=== PATIENT | female | born 1980 | race African-American/Black ===

== ENCOUNTER 2024-11-23 05:59 | Observation (INO) ==
[2024-11-23] MEDS ORDERED: KETOROLAC 30 MG/ML INJ VIAL ONE (06:22)
[2024-11-23] MEDS ORDERED: ONDANSETRON HCL/PF 4 MG/2 ML VIAL ONE ×2 (06:22→07:45)
[2024-11-23] MEDS: ONDANSETRON HCL/PF 4 MG/2 ML VIAL IVP ONE ×2 (06:38→07:50)
[2024-11-23] MEDS: KETOROLAC 30 MG/ML INJ VIAL IVP ONE (06:38)
[2024-11-23 06:48] LABS: Basophils #(Absolute) Auto 0.1 (0.0-0.1); Basophils%(Percent) Auto 0.8 (0.1-0.85); Eosinophils#(Absolute)Auto 0.1 (0.0-0.2); Eosinophils%(Percent) Auto 0.4 % (0.4-2.8); Granulocytes % - Auto 69.6 % (47.8-71.3); Granulocytes#(Absolute)- Auto 9.2 (2.3-6.0); Hematocrit 44.7 % (35.9-46.7); Mean Corpuscular Volume 89.7 fl (81.0-93.7); Monocytes #(Absolute)- Auto 1.2 (1.1-3.1); Monocytes %(Percent)- Auto 9.2 % (3.6-9.8); Platelet Count 302 K/uL (152-353); White Blood Count 13.2 K/uL (4.3-9.3)
[2024-11-23 06:53] LABS: PH BODY FLUID EXCP BLOOD 6.5 (5 - 9); Specific Gravity Urine 1.025 (1.001-1.035); Urine Appearance HAZY (CLEAR); Urine Blood 3+ (NEG - TRACE); Urine Color YELLOW (STRAW/YELL.); Urine Urobilinogen Normal (NORMAL)
[2024-11-23 07:02] LABS: Urine Amorphous Sediment Negative (Negative); Urine Yeast Negative (Negative)
--- NOTE | 2024-11-23 07:35 | Emergency Department Note ---
HPI - Abdominal Pain General Chief Complaint: Abdominal Pain Stated Complaint: ABDOMINAL PAIN Time Seen by Provider: 11/23/24 08:26 Source: patient Mode of arrival: walk-in Limitations: no limitations History of Present Illness HPI narrative: 44-year-old female approximately 1 week history of progressively generalized abdominal pain with intermittent nausea and vomiting. Patient states her symptoms of gotten progressively worse with time. Patient has been seen in 2 separate ERs this week and reports diagnosis of constipation and kidney stones. [facility] with complaints of worsening symptoms. She denies known sick contacts. She is pending a primary care follow-up appointment this Saturday with Dr. Zeny SWAIN elicited complaint: abdominal pain Pertinent past history: constipation and kidney stones Pain Consistency: constant Location: diffuse Severity: moderate-severe Quality: dull Relieving factors: nothing Associated symptoms: nausea, vomiting and anorexia Treatments prior to arrival: NSAIDs Related Data Home Medications Medication Instructions Recorded Confirmed albuterol sulfate 90 mcg/actuation 2 puff inhalation Q4H PRN 11/27/24 11/27/24 aerosol inhaler shortness of breath or wheezing ondansetron 4 mg disintegrating 4 mg PO Q6H PRN nausea and vomiting 11/27/24 11/27/24 tablet promethazine 25 mg rectal 25 mg [place] Q6H PRN nausea and 11/27/24 11/27/24 suppository vomiting sucralfate 1 gram tablet (Carafate) 1 g PO TIDCC 11/27/24 11/27/24 Previous Rx's Medication Instructions Recorded docusate sodium 100 mg capsule 100 mg PO DAILY #30 caps 11/24/24 (Colace) famotidine 40 mg tablet (Pepcid) 40 mg PO BID gastritis #60 tabs 11/28/24 pantoprazole 40 mg tablet,delayed 40 mg PO BID gerd #60 tabs 11/28/24 release polyethylene glycol 3350 17 17 g PO BID constipation #850 grams 11/28/24 gram/dose oral powder (Miralax) simethicone 180 mg capsule 180 mg PO Q8H gas #60 caps 11/28/24 Allergies Allergy/AdvReac Type Severity Reaction Status Date / Time No Known Drug Allergies Allergy Verified 11/26/24 12:59 Review of Systems Status of ROS 10 or more systems reviewed and unremark able except as noted in history and below PFSH PFS Medical History Schizophrenia Hypertension Surgical History Hx of section Social History Smoking status: never smoker Within the past year, how often did you have a drink containing alcohol: never Within the past year, how often did you have six or more drinks on one occasion: never Score interpretation: A score less than 3 is consistent with normal alcohol consumption. Non-prescribed substance use: denies use Problems where you live: no known problems Highest level of school completed/degree received: high school Feel stressed/tense/nervous/anxious/difficulty sleeping: not at all Life stressor details: n/a Gender Identity: female Exam Constitutional: normal general appearance and no apparent distress Vital Signs - 24 hr 11/23/24 06:02 11/23/24 06:02 11/23/24 07:00 Temperature 98.5 F Pulse Rate 99 H 80 Respiratory Rate 20 18 Blood Pressure 174/90 173/82 Pulse Oximetry 98 98 99 Oxygen Delivery Me thod Room Air Room Air Room Air 11/23/24 08:00 11/23/24 09:00 Temperature Pulse Rate 78 71 Respiratory Rate 18 18 Blood Pressure 160/97 147/74 Pulse Oximetry 99 97 Oxygen Delivery Me thod Room Air Room Air HENMT: normocephalic and head/scalp atraumatic dry mucus membranes Eyes: PERRL and conjunctivae normal Neck/C-Spine: visual inspection normal, trachea midline, cervical spine nontender, cervical full ROM noted and supple Lymph: no lymphadenopathy noted Chest: inspection of chest normal Respiratory: breath sounds equal bilaterally, normal respiratory effort, clear to auscultation bilaterally, no wheezes and no rales Cardiovascular: normal heart rate noted and regular rhythm noted Gastrointestinal: nondistended, no masses, no pulsatile mass, no ascites and no hernia Moderate mid abdominal tenderness, no rebound, no guarding Genitourinary: no CVA tenderness and bladder normal to palpation Back/Pelvis: spine normal to inspection, no thoracic spine tenderness, no lumbar spine tenderness and thoracic spine ROM normal Extremities: normal to inspection, normal to palpation, no tenderness and full ROM Neurology: screw remover II-XII intact, no movement abnormality noted, no focal motor deficit noted, speech normal and GCS normal Skin: skin color normal, no rash and no lesions Course Course Hospital Course: IVF 1L NS BOLUS Toradol 30mg IV Zofran 4mg IV Vital Signs Vital signs: Vital Signs Temperature 98.5 F 11/23/24 06:02 Pulse Rate 99 H 11/23/24 06:02 Respiratory Rate 20 11/23/24 06:02 Blood Pressure 174/90 11/23/24 06:02 Pulse Oximetry 98 11/23/24 06:02 Oxygen Delivery Method Room Air 11/23/24 06:02 Temperature 98.1 F 11/24/24 07:57 Pulse Rate 102 H 11/24/24 07:57 Respiratory Rate 17 11/24/24 07:57 Blood Pressure 118/66 11/24/24 07:57 Pulse Oximetry 99 11/24/24 07:57 Oxygen Delivery Method Room Air 11/24/24 07:57 MDM - Abdominal Pain MDM Narrative Medical decision making narrative: Medical Decision Making based upon physical exam, CBC, CMP, Amylase, lipase, urinalysis, CT of the abdomen pelvis without contrast, gallbladder ultrasound, and response to medications. Differential Diagnosis Differential diagnosis: Likely abdominal pain, acute appendicitis, calculus of kidney, constipation, diverticulitis, gastroenteritis, pancreatitis and small noemí wel obstruction Medical Records Attestation: I reviewed the patient's medical records. Lab Data Attestation: I reviewed the patient's lab results. Labs: Lab Results 11/23/24 11/23/24 11/23/24 Range/Units 06:10 06:18 06:38 WBC 13.2 H (4.3-9.3) K/uL RBC 5.0 (4.00-5.50) M/uL Hgb 14.8 (12.5-15.8) gm/dL Hct 44.7 (35.9-46.7) % MCV 89.7 (81.0-93.7) fl MCH 29.7 (27.6-32.2) pg MCHC 33.1 (33.1-35.3) g/dl RDW 15.8 H (11.4-14.2) % Plt Count 302 (152-353) K/uL MPV 9.1 (6.9-10.8) fl Gran % 69.6 (47.8-71.3) % Lymph % (Auto) 20.0 (20.0-43.0) % [place] % (Auto) 9.2 (3.6-9.8) % Eos % (Auto) 0.4 (0.4-2.8) % Baso % (Auto) 0.8 (0.1-0.85) Lymph # (Auto) 2.6 (1.1-3.1) [place] # (Auto) 1.2 (1.1-3.1) Eos # (Auto) 0.1 (0.0-0.2) Baso # (Auto) 0.1 (0.0-0.1) Absolute Gran (auto) 9.2 H (2.3-6.0) Sodium 130 L (136-145) mmol/L Potassium 3.0 L (3.6-5.2) mmol/L Chloride 92.0 L (98-107) mmol/L Carbon Dioxide 31 (21-32) mmol/L Anion Gap 7.0 (4-14) mEq/L BUN 9 (7-18) mg/dL Creatinine 0.9 (0.6-1.3) mg/dL Estimated GFR 80.8 (>59.9) Glucose 120 H (70-110) mg/dL Calcium 9.3 (8.5-10.1) mg/dL Total Bilirubin 0.37 (0.0-1.0) mg/dL AST 21 (15-37) U/L ALT 36 (30-65) U/L Alkaline Phosphatase 82 (50-136) U/L Total Protein 8.3 H (6.4-8.2) g/dL Albumin 4.0 (3.4-5.0) g/dL Triglycerides 79 (35-180) mg/dL Cholesterol 169 (110-200) mg/dL LDL Cholesterol 90.0 (0-99) mg/dl VLDL Cholesterol, Calc 16 (0-30) mg/dL HDL Cholesterol 58 (29-71) mg/dL LDL/HDL Ratio 1.6 Cholesterol/HDL Ratio 2 Lipase 224.0 H (16.0-77.0) U/L Urine Color Yellow (STRAW/YELL.) Urine Appearance Hazy (CLEAR) Ur Specific [place] 1.025 (1.001-1.035) Urine Protein Negative (NEGATIVE) Urine Glucose (UA) Normal (NORMAL) Urine Ketones Negative (NEGATIVE) Urine Occult Blood 3+ (NEG - TRACE) Urine Nitrite Negative (NEGATIVE) Urine Bilirubin Negative (NEGATIVE) Urine Urobilinogen Normal (NORMAL) Ur Leukocyte Esterase Negative (NEGATIVE) Urine RBC 5 - 10 (0 - 5) Urine WBC 0 - 2 ( 0 - 5) Ur Epithelial Cells Moderate (Few/HPF) Amorphous Sediment Negative (Negative) Urine Bacteria Negative (Negative) Urine Mucus Negative (Negative) Urine Trichomonas Negative (Negative) Urine Yeast Negative (Negative) Urine Test Negative (Negative) Fluid pH 6.5 (5 - 9) Imaging Data Imaging ordered: CT scan - abdomen Attestation: I personally reviewed and interpreted this imaging study as follows: Radiologist's impression: EXAMINATION: CT ABDOMEN PELVIS WO CON HISTORY: abd painabd pain; COMPARISON: None. TECHNIQUE: Contiguous noncontrast axial CT images of the abdomen and pelvis. Images reviewed in the axial imaging plane with reformatted sagittal and coronal images.The above CT scan was done with automated exposure control and the mA and kV was adjusted to obtain quality images according to patient size. FINDINGS: Details of the organs are limited since intravenous and oral contrast were not used. The liver measures 18 by 18 by 16 cm. No focal liver lesions seen. Gallbladder mildly distended. The gallbladder contains dense material measuring 45 Hounsfield units nonspecific for biliary sludge, possible soft tissue mass. No bile duct dilatation. Pancreas, spleen, adrenal glands appear intact. The abdominal aorta tapers normally. Kidneys normal size and position. No hydronephrosis. Details of the GI tract are limited since oral contrast was not used. Mild amount of bowel-gas and feces throughout the colon. No evidence of appendicitis. Equivocal mild bowel wall thickening portions of the descending colon and sigmoid colon. The stomach contains a small amount of food. No ascites. Urinary bladder mildly distended. Uterus measures 11 by 7 x 8 cm. Nonspecific [id number] thickening of the endometrium. Osseous structures appear intact. Pulmonary bases are clear. IMPRESSION: The gallbladder contains dense material possible biliary sludge, soft tissue mass. Recommend follow-up ultrasound of the biliary tract. Thickening of the endometrium of the uterus. Recommend follow-up transabdominal and transvaginal ultrasound of the pelvis. Equivocal mild bowel wall thickening portions of the descending colon, and sigmoid colon THIS IS AN ELECTRONICALLY VERIFIED FINAL REPORT 11/23/2024 7:45 AM - Electronically signed by Maki Mendez MD EXAM: US GALLBLADDER HISTORY: Abodminal PainAbodminal Pain; ABNML CT REPORT COMPARISON: CT same day TECHNIQUE: Multiple peterson scale and color flow Doppler images of the right upper quadrant were obtained. FINDINGS: The liver is normal in size and normal in echotexture. No focal identifiable hepatic mass or intrahepatic biliary ductal dilatation. No stones or sludge in the gallbladder. No gallbladder wall thickening or pericholecystic fluid. The sonographic López's sign is reported as negative by the insights strategist. The common bile duct is unremarkable measuring 0.5 cm. Limited visualized portions of the pancreas and IVC are unremarkable. The right kidney appears normal in size measuring up to 10.6 cm. No stones or hydronephrosis. IMPRESSION: Unremarkable right upper quadrant ultrasound. No evidence of cholelithiasis or acute cholecystitis. THIS IS AN ELECTRONICALLY VERIFIED FINAL REPORT 11/23/2024 8:28 AM - Electronically signed by Elmer Adams MD Discharge Plan Discharge Patient Disposition: Admitted As Observation Condition: Stable Clinical Impression: Gastroenteritis, Abdominal pain, Constipation, Leukocytosis, Hyponatremia, Hypokalemia Interventions: ED Discharge Assessment Last Done: 11/23/24 10:53 ED Discharge Vital Sign Last Done: 11/23/24 10:53 Emergency Department Charge Sheet Last Done: 11/23/24 10:53 Time of Disposition: 09:30 Discharge Date/Time: 11/23/24 10:54
[2024-11-23] MEDS ORDERED: PANTOPRAZOLE SODIUM 40 MG VIAL ONE (07:44)
[2024-11-23] MEDS ORDERED: MORPHINE SULFATE 4 MG/ML CARTRIDGE ONE (07:45)
[2024-11-23] MEDS: PANTOPRAZOLE SODIUM 40 MG VIAL IVP ONE (07:50)
[2024-11-23] MEDS: MORPHINE SULFATE 4 MG/ML CARTRIDGE IVP ONE (07:50)
[2024-11-23] MEDS ORDERED: MAGNESIUM, ALUMINUM HYDROXIDE 30 ML ORAL.SUSP PO PRN (11:00)
[2024-11-23] MEDS ORDERED: DOCUSATE SODIUM 100 MG CAPSULE PO PRN (11:00)
[2024-11-23] MEDS: polyethylene glycoL 3350 17 GM POWD.PACK PO STA (11:00)
[2024-11-23] MEDS ORDERED: ONDANSETRON HCL/PF 4 MG/2 ML VIAL INJ PRN (11:00)
[2024-11-23] MEDS: 0.9 % SODIUM CHLORIDE 1000 ML 1,000 ML IV SCH (11:01)
[2024-11-23] MEDS: POTASSIUM CL 20 MEQ/100 ML SOL 20 MEQ/100 ML PIGGYBACK IV ONE (12:27)
--- NOTE | 2024-11-23 12:46 | History & Physical Report ---
H&P: HPI History of Present Illness Chief complaint: ABD PAIN, LEUKOCYTOSIS, HYPOKALEMIA, HYPONATREMIA Narrative: Ms. Don was admitted o 11/23/24 from the ED after experiencing generalized abdominal pain for 1 week. No BM x 7 days. She has had some vomiting of white emesis states "every 20 minutes" but labs do not reflect this much emesis. Denies any medical history or medications. She has not taken any laxatives prior to arrival. WBC 13.2, Na 130, K 3.0. She received KCL, Miralax, and NS in the ED. Review of Systems Status of ROS 10 or more systems reviewed and unremark able except as noted in history and below Constitutional Reports: fatigue and change in sleep pattern; Denies: fever, chills, change in weight or malaise Eyes Denies: change in vision, blurry vision, blind spots, light sensitivity or eye discomfort Ears, nose, mouth, and throat Reports: hoarseness; Denies: throat pain, neck pain, throat swelling, difficulty swallowing, mouth pain, swelling of lips/tongue, dry mouth, change in hearing, vertigo, nasal discharge or post nasal drip Cardiovascular Reports: chest pain; Denies: palpitations, edema, swelling of feet/ankles, lightheadedness, shortness of breath with exertion or shortness of breath when lying down Respiratory Denies: shortness of breath, cough, wheezing, stridor, pain on inspiration, change in phlegm color or coughing up blood Gastrointestinal Reports: abdominal pain, constipation and change in bowel habi ts Genitourinary Denies: painful urination, urinary frequency, urinary urgency, urinary incontinence or blood in urine Musculoskeletal Denies: back pain, neck pain, extremity pain, extremity swelling, joint pain or limited range of motion Integumentary/Breast Denies: rash, itching, redness, skin pain, skin tenderness or skin swelling Neurological Denies: headache, numbness in extremities, weakness in extremities, lack of coordination or dizziness Psychiatric Denies: anxiety, mood swings, panic attacks, change in sleep pattern or hopelessness Endocrine Denies: excessive urination, excessive thirst, fatigue, cold intoler ance or excessive sweating Hematologic/Lymphatic Denies: easy bruising, easy bleeding or enlarged lymph nodes Allergic/Immunologic Denies: hives, throat swelling, tongue swelling, facial swelling or wheezing PFSH [facility] Medical History (Updated 12/17/24 @ 09:24 by Karen Moura DO) Hypokalemia Schizophrenia Hypertension Surgical History Hx of section Social History Smoking status: never smoker Within the past year, how often did you have a drink containing alcohol: never Within the past year, how often did you have six or more drinks on one occasion: never Score interpretation: A score less than 3 is consistent with normal alcohol consumption. Non-prescribed substance use: denies use Problems where you live: no known problems Highest level of school completed/degree received: high school Feel stressed/tense/nervous/anxious/difficulty sleeping: not at all Life stressor details: n/a Gender Identity: female Meds Home Medications and Allergies Home Medications Medication Instructions Recorded Confirmed Type docusate sodium 100 mg capsule 100 mg PO DAILY #30 cap s 11/24/24 11/26/24 Rx (Colace) albuterol sulfate 90 mcg/actuation 2 puff inhalation Q 4H PRN 11/27/24 11/27/24 History aerosol inhaler shortness of breath or wheez ing ondansetron 4 mg disintegrating 4 mg PO Q6H PRN nausea and vomiting 11/27/24 11/27/24 History tablet promethazine 25 mg rectal 25 mg [place] Q6H PRN nausea and 11/27/24 11/27/24 History suppository vomiting sucralfate 1 gram tablet (Carafate) 1 g PO TIDCC 11/2711/27/24 History famotidine 40 mg tablet (Pepcid) 40 mg PO BID gastriti s #60 tabs 11/28/24 Rx pantoprazole 40 mg tablet,delayed 40 mg PO BID gerd #6 0 tabs 11/28/24 11/27/24 Rx release polyethylene glycol 3350 17 17 g PO BID constipation # 850 grams 11/28/24 Rx gram/dose oral powder (Miralax) simethicone 180 mg capsule 180 mg PO Q8H gas #60 caps 11/28/24 Rx Allergies Allergy/AdvReac Type Severity Reaction Status Date / Time No Known Drug Allergies Allergy Verified 11/26/24 12:59 Exam Exam: Patient setting up in bed with family at bedside in [facility]. talking and cutting up with them. Constitutional: abnormal general appearance (disheveled), (chronically ill) and (frail appearing), no apparent distress, average body habitus, no limitations and alert Vital Signs - 24 hr 11/23/24 06:02 11/23/24 06:02 11/23/24 07:00 Temperature 98.5 F Pulse Rate 99 H 80 Pulse Rate [Left] Respiratory Rate 20 18 Blood Pressure 174/90 173/82 Blood Pressure [Le ft Arm] Pulse Oximetry 98 98 99 Oxygen Delivery Me thod Room Air Room Air Room Air 11/23/24 08:00 11/23/24 09:00 11/23/24 10:00 Temperature Pulse Rate 78 71 72 Pulse Rate [Left] Respiratory Rate 18 18 18 Blood Pressure 160/97 147/74 143/78 Blood Pressure [Le ft Arm] Pulse Oximetry 99 97 96 Oxygen Delivery Ne thod Room Air Room Air Room Air 11/23/24 10:53 11/23/24 10:53 11/23/24 12:00 Temperature 97.7 F Pulse Rate 72 Pulse Rate [Left] 73 Respiratory Rate 16 16 Blood Pressure 143/78 Blood Pressure [Le ft Arm] 170/98 Pulse Oximetry 98 98 Oxygen Delivery Ne thod Room Air Room Air HENMT: normocephalic, head/scalp atraumatic, hearing grossly normal bilaterally, nasal mucous membranes normal, oral mucous membranes abnormal, dentition abnormal and gingiva normal Eyes: PERRL, EOMs intact bilaterally, conjunctivae normal, no scleral icterus and no papilledema Neck/C-Spine: visual inspection normal, trachea midline, cervical spine nontender, cervical full ROM noted, supple, no meningeal signs, thyroid normal and no carotid bruits Lymph: no lymphadenopathy noted and no lymphedema noted Chest: inspection of chest normal Respiratory: breath sounds equal bilaterally, normal respiratory effort, clear to auscultation bilaterally, no wheezes, no rales, no retractions, no use of accessory muscles and chest percussion normal Cardiovascular: heart rate abnormal (tachycardic), regular rhythm noted, no gallop and no rub Gastrointestinal: abdomen normal to inspection, abdomen soft to palpation, tender to palpation, nondistended, abnormal bowel sounds noted (hypoactive bowel sounds), hepatosplenomegaly noted, no masses, no pulsatile mass, no ascites and no hernia Generalized tenderness bilateral upper abdomen. Genitourinary: no CVA tenderness and bladder normal to palpation Back/Pelvis: spine normal to inspection and no thoracic spine tenderness Extremities: normal to inspection and normal to palpation Neurology: plan examiner II-XII intact, no movement abnormality noted, no focal motor deficit noted, sensory deficit noted, deep tendon reflexes 2+ bilaterally, gait normal, speech normal, coordination normal and no pronator drift noted Psychiatry: Mental Status Exam documented within this Exam's Psych section mental status grossly normal, oriented x3, thought process abnormality noted, cooperative, affect normal, psychomotor activity normal and memory normal Feel stressed/tense/nervous/anxious/difficulty sleeping: not at all Skin: skin color abnormal, no rash, no lesions, no ecchymosis noted, no wounds, no lacerations, skin turgor abnormal, no petechiae, no mottling and nails abnormality noted Assessment and Plan Assessment and Plan (1) Acute dehydration: Code(s): E86.0 - Dehydration (2) Abdominal pain: Qualifiers: Abdominal location: generalized Qualified Code(s): R10.84 - Generalized abdominal pain Code(s): R10.9 - Unspecified abdominal pain (3) Constipation: Qualifiers: Constipation type: slow transit constipation Qualified Code(s): K59.01 - Slow transit constipation Code(s): K59.00 - Constipation, unspecified (4) Sinus tachycardia: Code(s): R00.0 - Tachycardia, unspecified (5) GERD with esophagitis: Qualifiers: Esophagitis bleeding: without hemorrhage Qualified Code(s): K21.00 - Gastro-esophageal reflux disease with esophagitis, without bleeding Code(s): K21.00 - Gastro-esophageal reflux disease with esophagitis, without bleeding (6) Hypertension: Qualifiers: Hypertension type: primary hypertension Qualified Code(s): I10 - Essential (primary) hypertension Code(s): I10 - Essential (primary) hypertension (7) Schizophrenia: Qualifiers: Schizophrenia type: other Qualified Code(s): F20.89 - Other schizophrenia Code(s): F20.9 - Schizophrenia, unspecified (8) Anemia: Qualifiers: Anemia type: other cause Other causes of anemia: other cause, not classified Qualified Code(s): D64.89 - Other specified anemias Code(s): D64.9 - Anemia, unspecified (9) Hypokalemia: Code(s): E87.6 - Hypokalemia (10) Hypoalbuminemia: Code(s): E88.09 - Other disorders of plasma-protein metabolism, not elsewhere classified Plan Lactulose 20gm po q6hrs x4 Miralax 17gm po BID Toradol 30mg IV q6hrs prn cardiac specialist serial abdominal exams cautious hydration Results Labs Labs: CBC 11/23/24 Range/Units 06:38 WBC 13.2 H (4.3-9.3) K/uL RBC 5.0 (4.00-5.50) M/uL Hgb 14.8 (12.5-15.8) gm/dL Hct 44.7 (35.9-46.7) % Plt Count 302 (152-353) K/uL Gran % 69.6 (47.8-71.3) % Lymph % (Auto) 20.0 (20.0-43.0) % [place] % (Auto) 9.2 (3.6-9.8) % Eos % (Auto) 0.4 (0.4-2.8) % Baso % (Auto) 0.8 (0.1-0.85) Lymph # (Auto) 2.6 (1.1-3.1) [place] # (Auto) 1.2 (1.1-3.1) Eos # (Auto) 0.1 (0.0-0.2) Baso # (Auto) 0.1 (0.0-0.1) Absolute Gran (auto) 9.2 H (2.3-6.0) CMP 11/23/24 06:18 Sodium 130 L Potassium 3.0 L Chloride 92.0 L Carbon Dioxide 31 BUN 9 Creatinine 0.9 Glucose 120 H Calcium 9.3 Liver Function 11/23/24 Range/Units 06:18 Total Bilirubin 0.37 (0.0-1.0) mg/dL AST 21 (15-37) U/L ALT 36 (30-65) U/L Alkaline Phosphatase 82 (50-136) U/L Albumin 4.0 (3.4-5.0) g/dL Urine 11/23/24 06:10 Urine Color Yellow Urine Appearance Hazy Ur Specific [place] 1.025 Urine Protein Negative Urine Glucose (UA) Normal Pulse Oximetry Attestation: I have reviewed the pertinent pulse oximetry results. ECG Attestation: I have reviewed the pertinent ECG results. Prior ECG tracings: available for review Imaging Imaging ordered: CT scan - abdomen Radiologist's impression: The gallbladder contains dense material possible biliary sludge, soft tissue mass. Recommend follow-up ultrasound of the biliary tract. Thickening of the endometrium of the uterus. Recommend follow-up transabdominal and transvaginal ultrasound of the pelvis. Equivocal mild bowel wall thickening portions of the descending colon, and sigmoid colon Additional Findings Additional findings: Unremarkable right upper quadrant ultrasound. No evidence of cholelithiasis or acute cholecystitis. THIS IS AN ELECTRONICALLY VERIFIED FINAL REPORT 11/23/2024 8:28 AM - Electronically signed by Elmer Adams MD
[2024-11-23] MEDS: ACETAMINOPHEN PO PRN (13:39)
[2024-11-23] MEDS: OXYCODONE HCL PO PRN (13:39)
[2024-11-23] MEDS: LACTULOSE 20 GM/30 ML SOLUTION PO SCH (13:39)
[2024-11-23] MEDS: cloNIDine HCL 0.1 MG TABLET PO PRN (17:16)
[2024-11-23] MEDS: ACETAMINOPHEN 500 MG TABLET PO PRN (20:39)
[2024-11-23] MEDS: polyethylene glycoL 3350 17 GM POWD.PACK PO SCH (20:41)
[2024-11-23] MEDS: MORPHINE SULFATE 4 MG/ML CARTRIDGE IV PRN (20:59)
[2024-11-24] MEDS: 0.9 % SODIUM CHLORIDE 1000 ML 1,000 ML IV SCH (00:33)
[2024-11-24 05:42] LABS: Basophils%(Percent) Auto 0.4 (0.1-0.85); Eosinophils#(Absolute)Auto 0.1 (0.0-0.2); Granulocytes % - Auto 64.8 % (47.8-71.3); Granulocytes#(Absolute)- Auto 5.4 (2.3-6.0); Mean Corpuscular Volume 90.6 fl (81.0-93.7); Monocytes #(Absolute)- Auto 0.7 (1.1-3.1); Monocytes %(Percent)- Auto 8.5 % (3.6-9.8); Platelet Count 225 K/uL (152-353); White Blood Count 8.3 K/uL (4.3-9.3)
[2024-11-24 05:56] LABS: Potassium 3.2 mmol/L (3.6-5.2)
[2024-11-24 07:58] VITALS: BP 118/66; PULSE 102; RESP 17; TEMP 98.1
[2024-11-24] MEDS: POTASSIUM CHLORIDE 20 MEQ TAB.ER.PRT PO ONE (09:06)
[2024-11-24] MEDS: PANTOPRAZOLE SODIUM 40 MG TABLET.DR PO SCH (09:06)
--- NOTE | 2024-11-24 10:24 | Discharge Summary ---
DS: Providers Provider Date of admission: 11/23/24 10:16 Primary care physician: Karen Moura DO Consults: 11/24/24 10:01 Consult to Discharge Planning Routine Comment: Consulting Provider: Physician Instructions: Reason for consultation: discharge DS: Diagnosis Discharge Diagnosis (1) Constipation: (2) Abdominal pain: DS: Summary Hospital Course Hospital Course: was admitted on 11/24/24 with generalized abdominal pain ongoing for [address] abdomen did show constipation also recommending gallbladder US. US did not find acute choleystitis . WBC was elevated on admit 13, Na 130, and K 3.0. Electrolytes were replaced during her stay. Patient was started on Lactulose q6 hrs with miralax with relieved abdominal pain and constipation. Patient was discharged on 11/24/24 to follow up with PCP. Status at Discharge Functional status at discharge: independent ambulation Overall status at discharge: patient is back to baseline Time Spent with Patient Time attestation: Total time spent providing and/or coordinating discharge services: Time spent: greater than 30 minutes Exam Constitutional: normal general appearance Vital Signs - 24 hr 11/23/24 10:53 11/23/24 10:53 11/23/24 12:00 Temperature 97.7 F Pulse Rate 72 Pulse Rate [Left] 73 Respiratory Rate 16 16 Blood Pressure 143/78 Blood Pressure [Le ft Arm] 170/98 Pulse Oximetry 98 98 Oxygen Delivery Me thod Room Air Room Air 11/23/24 16:00 11/23/24 17:16 11/23/24 20:00 Temperature 98.7 F 98.9 F Pulse Rate Pulse Rate [Left] 80 87 Respiratory Rate 16 16 Blood Pressure 186/102 Blood Pressure [Le ft Arm] 186/102 131/89 Pulse Oximetry 98 99 Oxygen Delivery Me thod Room Air Room Air 11/24/24 00:00 11/24/24 03:26 11/24/24 07:57 Temperature 98.5 F 98.0 F 98.1 F Pulse Rate Pulse Rate [Left] 82 77 102 H Respiratory Rate 17 19 17 Blood Pressure Blood Pressure [Le ft Arm] 147/98 128/77 118/66 Pulse Oximetry 100 95 99 Oxygen Delivery Me thod Room Air Room Air Room Air HENMT: normocephalic and head/scalp atraumatic Eyes: PERRL and EOMs intact bilaterally Neck/C-Spine: visual inspection normal, trachea midline and cervical spine nontender Lymph: no lymphadenopathy noted Chest: inspection of chest normal and palpation of chest normal Respiratory: breath sounds equal bilaterally, normal respiratory effort and clear to auscultation bilaterally Cardiovascular: normal heart rate noted and regular rhythm noted Gastrointestinal: abdomen normal to inspection and abdomen soft to palpation Extremities: normal to inspection and normal to palpation Neurology: clinical research administrator II-XII intact, no movement abnormality noted, no focal motor deficit noted and no sensory deficits noted Skin: skin color normal DS: Data Data Completed and Pending Labs on day of discharge: Labs from last 24 hours 11/24/24 11/23/24 11/23/24 05:20 06:38 06:18 WBC 8.3 RBC 4.3 Hgb 13.0 Hct 39.0 MCV 90.6 MCH 30.2 MCHC 33.3 RDW 15.0 H Plt Count 225 MPV 8.5 Gran % 64.8 Lymph % (Auto) 25.3 [place] % (Auto) 8.5 Eos % (Auto) 1.0 Baso % (Auto) 0.4 Lymph # (Auto) 2.1 [place] # (Auto) 0.7 L Eos # (Auto) 0.1 Baso # (Auto) 0.0 Absolute Gran (auto) 5.4 Sodium 135 L Potassium 3.2 L Chloride 101.0 Carbon Dioxide 28 Anion Gap 6.0 BUN 5 L Creatinine 0.7 Estimated GFR 109.3 Glucose 112 H Calcium 8.6 Magnesium 2.2 Total Bilirubin 0.30 AST 12 L ALT 25 L Alkaline Phosphatase 63 Total Protein 6.7 Albumin 3.3 L Triglycerides 79 Cholesterol 169 LDL Cholesterol 90.0 VLDL Cholesterol, Calc 16 HDL Cholesterol 58 LDL/HDL Ratio 1.6 Cholesterol/HDL Ratio 2 Urine Test Negative Discharge Plan Discharge Disposition: Home, Self-Care Condition: Stable Discharge Medications: New docusate sodium [Colace] 100 mg capsule 100 mg PO DAILY Qty: 30 0RF Discharge Orders: Discharge Order (Routine); Ordered 11/24/24 Ordered By: Guillaume Gaviria Activity: resume usual activities as tolerated Diet: advance to your usual diet Interventions: Discharge Assessment Last Done: 11/24/24 10:24 MED/SURG & ICU Observation Charge Sheet Last Done: 11/24/24 10:24 Patient Instructions: Constipation (GEN), High Fiber Diet (GEN) Activity Restrictions/Additional Instructions: Increase fiber intake Forms: Portal/Health Info Access Inst Follow-Ups: Karen Moura DO [Primary Care Provider] - (1 week) Discharge Date/Time: 11/24/24 10:42
== END 2024-11-24 10:42 | disposition home or self-care (01) ==
LOC: ED 05:59 → MS 05:59
PROVIDERS: ADMIT Nurse Practitioner; ATTEND Nurse Practitioner
DX: I10 Essential (primary) hypertension; K59.00 Constipation, unspecified; F20.9 Schizophrenia, unspecified; Z79.899 Other long term (current) drug therapy; F17.290 Nicotine dependence, other tobacco product, uncomplicated

== ENCOUNTER 2024-11-26 12:34 | Observation (INO) ==
--- NOTE | 2024-11-26 12:56 | Emergency Department Note ---
HPI - General Adult General Chief complaint: Abdominal Pain Stated complaint: Chest pain and Vomiting Time Seen by Provider: 11/26/24 12:47 Source: patient Mode of arrival: walk-in Limitations: no limitations History of Present Illness HPI narrative: This is a 44 year old female patient that presents to the ER with c/o chest pressure, abdominal pain and N/V. Patient was discharged from the hospital for the same on 11/24/24 and was seen in the ER yesterday for the same. patient states she is not feeling any better. patient denies any SOB, back pain, fever, chills or diarrhea Location: Reports chest and abdomen Radiation: Reports non-radiation Severity: moderate Quality: Reports aching Pain Consistency: Reports constant Relieving factors: Reports none Exacerbating factors: Reports none Associated symptoms: Reports chest pain and nausea/vomiting Treatments prior to arrival: Reports none Related Data Previous Rx's Medication Instructions Recorded docusate sodium 100 mg capsule 100 mg PO DAILY #30 caps 11/24/24 (Colace) Allergies Allergy/AdvReac Type Severity Reaction Status Date / Time No Known Drug Allergies Allergy Verified 11/26/24 12:59 Review of Systems Status of ROS 10 or more systems reviewed and unremark able except as noted in history and below Constitutional Denies: fever, chills, change in weight, fatigue or malaise Eyes Denies: change in vision, blurry vision, blind spots, light sensitivity or eye discomfort Ears, nose, mouth, and throat Denies: throat pain, neck pain, throat swelling, difficulty swallowing, hoarseness or mouth pain Cardiovascular Reports: chest pain; Denies: palpitations, edema, swelling of feet/ankles, lightheadedness or shortness of breath with exertion Respiratory Denies: shortness of breath, cough, wheezing, stridor or pain on inspiration Gastrointestinal Reports: abdominal pain, nausea and vomiting; Denies: coffee grounds in vomit, heartburn, diarrhea, constipation or bloating Genitourinary Denies: painful urination, urinary frequency, urinary urgency, urinary incontinence or blood in urine Musculoskeletal Denies: back pain, neck pain, extremity pain, extremity swelling, joint pain or limited range of motion Integumentary/Breast Denies: rash, itching, redness, skin pain, skin tenderness or skin swelling Neurological Denies: headache, numbness in extremities, weakness in extremities, lack of coordination or dizziness Psychiatric Denies: anxiety, mood swings, panic attacks, change in sleep pattern or hopelessness Endocrine Denies: excessive urination, excessive thirst, fatigue, cold intolerance or excessive sweating Hematologic/Lymphatic Denies: easy bruising, easy bleeding or enlarged lymph nodes Allergic/Immunologic Denies: hives, throat swelling, tongue swelling, facial swelling or wheezing PFSH PFSH Medical History (Updated 11/26/24 @ 13:02 by Amanda Medina RN) Schizophrenia Hypertension Surgical History Hx of section Social History Smoking status: never smoker Within the past year, how often did you have a drink containing alcohol: never Within the past year, how often did you have six or more drinks on one occasion: never Score interpretation: A score less than 3 is consistent with normal alcohol consumption. Non-prescribed substance use: denies use Problems where you live: no known problems Highest level of school completed/degree received: high school Exam Constitutional: normal general appearance and no apparent distress Vital Signs - 24 hr 11/26/24 12:45 11/26/24 14:00 Temperature 97.8 F Pulse Rate 86 83 Respiratory Rate 16 19 Blood Pressure 175/101 182/106 Pulse Oximetry 99 97 Oxygen Delivery Me thod Room Air Room Air HENMT: normocephalic, head/scalp atraumatic, hearing grossly normal bilaterally, external ears normal, EACs normal, nasal mucous membranes normal, external nose normal, oral mucous membranes normal and oropharynx normal Eyes: PERRL, EOMs intact bilaterally, conjunctivae normal and no scleral icterus Neck/C-Spine: visual inspection normal and trachea midline Lymph: no lymphadenopathy noted Chest: inspection of chest normal Respiratory: breath sounds equal bilaterally, normal respiratory effort, clear to auscultation bilaterally, no wheezes, no rales, no retractions, no use of accessory muscles and chest percussion normal Cardiovascular: normal heart rate noted, regular rhythm noted, no gallop, no rub, no murmur, no JVD, no clicks, peripheral pulses 2+ throughout, no bruits noted and no additional abnormal heart sounds Gastrointestinal: abdomen normal to inspection, abdomen soft to palpation, tender to palpation (diffuse tenderness), nontender to percussion, nondistended, normoactive bowel sounds, no hepatosplenomegaly, no masses, no pulsatile mass, no ascites and no hernia Genitourinary: no CVA tenderness Back/Pelvis: spine normal to inspection Extremities: normal to inspection, normal to palpation, no tenderness, full ROM, no joint enlargement and no deformity Neurology: no movement abnormality noted, no focal motor deficit noted, no sensory deficits noted, speech normal, coordination normal, no pronator drift noted, no fasciculations noted and GCS normal Psychiatry: mental status grossly normal, oriented x3, thought process normal, cooperative and affect normal Skin: skin color normal Course Course Hospital Course: 4: due to the ongling N/V and abdominal pain will admit patient to the medical floor for further evaluation and treatment. Patient is chest pain free. VSS, no s/s of acute distress noted Vital Signs Vital signs: Vital Signs Temperature 97.8 F 11/26/24 12:45 Pulse Rate 86 11/26/24 12:45 Respiratory Rate 16 11/26/24 12:45 Blood Pressure 175/101 11/26/24 12:45 Pulse Oximetry 99 11/26/24 12:45 Oxygen Delivery Method Room Air 11/26/24 12:45 Temperature 97.8 F 11/26/24 12:45 Pulse Rate 83 11/26/24 14:00 Respiratory Rate 19 11/26/24 14:00 Blood Pressure 182/106 11/26/24 14:00 Pulse Oximetry 97 11/26/24 14:00 Oxygen Delivery Method Room Air 11/26/24 14:00 Medical Decision Making Differential Diagnosis Differential Diagnosis: viral illness Medical Records Medical records reviewed: Yes I reviewed the patient's medical records Lab Data Lab results reviewed: Yes I reviewed the patient's lab results Labs: Lab Results 11/26/24 11/26/24 Range/Units 13:00 13:25 WBC 9.6 H (4.3-9.3) K/uL RBC 4.4 (4.00-5.50) M/uL Hgb 13.4 (12.5-15.8) gm/dL Hct 40.1 (35.9-46.7) % MCV 91.1 (81.0-93.7) fl MCH 30.5 (27.6-32.2) pg MCHC 33.5 (33.1-35.3) g/dl RDW 15.7 H (11.4-14.2) % Plt Count 246 (152-353) K/uL MPV 9.0 (6.9-10.8) fl Gran % 77.5 H (47.8-71.3) % Lymph % (Auto) 16.3 L (20.0-43.0) % [place] % (Auto) 5.0 (3.6-9.8) % Eos % (Auto) 0.6 (0.4-2.8) % Baso % (Auto) 0.6 (0.1-0.85) Lymph # (Auto) 1.6 (1.1-3.1) [place] # (Auto) 0.5 L (1.1-3.1) Eos # (Auto) 0.1 (0.0-0.2) Baso # (Auto) 0.1 (0.0-0.1) Absolute Gran (auto) 7.4 H (2.3-6.0) Sodium 135 L (136-145) mmol/L Potassium 3.6 (3.6-5.2) mmol/L Chloride 99.0 (98-107) mmol/L Carbon Dioxide 26 (21-32) mmol/L Anion Gap 10.0 (4-14) mEq/L BUN 6 L (7-18) mg/dL Creatinine 0.7 (0.6-1.3) mg/dL Estimated GFR 109.3 (>59.9) Glucose 126 H (70-110) mg/dL Calcium 8.9 (8.5-10.1) mg/dL Total Bilirubin 0.27 (0.0-1.0) mg/dL AST 18 (15-37) U/L ALT 26 L (30-65) U/L Alkaline Phosphatase 63 (50-136) U/L Troponin I High Sens 11.20 (4.0-60.4) ng/L Total Protein 7.4 (6.4-8.2) g/dL Albumin 3.6 (3.4-5.0) g/dL Lipase 24.0 (16.0-77.0) U/L Urine Color Yellow (STRAW/YELL.) Urine Appearance Hazy (CLEAR) Ur Specific [place] 1.015 (1.001-1.035) Urine Protein Negative (NEGATIVE) Urine Glucose (UA) Normal (NORMAL) Urine Ketones Large (NEGATIVE) Urine Occult Blood Negative (NEG - TRACE) Urine Nitrite Negative (NEGATIVE) Urine Bilirubin Negative (NEGATIVE) Urine Urobilinogen Normal (NORMAL) Ur Leukocyte Esterase Negative (NEGATIVE) Urine Test Negative (Negative) Fluid pH 6.5 (5 - 9) Imaging Data CT scan - abdomen: Attestation: I have reviewed the pertinent imaging results. ECG Data Attestation: I have reviewed the pertinent ECG results. Discharge Plan Discharge Patient Disposition: Admitted As Observation Condition: Stable Chief Complaint: Abdominal Pain Clinical Impression: Intractable abdominal pain, Intractable nausea and vomiting, Chest pain Prescriptions: No Action docusate sodium [Colace] 100 mg capsule 100 mg PO DAILY Qty: 30 0RF Print Language: Cymro Referrals: Karen Moura DO [Primary Care Provider] - Time of Disposition: 16:25
[2024-11-26 13:12] LABS: Basophils #(Absolute) Auto 0.1 (0.0-0.1); Basophils%(Percent) Auto 0.6 (0.1-0.85); Eosinophils#(Absolute)Auto 0.1 (0.0-0.2); Eosinophils%(Percent) Auto 0.6 % (0.4-2.8); Granulocytes % - Auto 77.5 % (47.8-71.3); Granulocytes#(Absolute)- Auto 7.4 (2.3-6.0); Hematocrit 40.1 % (35.9-46.7); Mean Corpuscular Volume 91.1 fl (81.0-93.7); Monocytes #(Absolute)- Auto 0.5 (1.1-3.1); Platelet Count 246 K/uL (152-353); White Blood Count 9.6 K/uL (4.3-9.3)
[2024-11-26 13:21] LABS: Potassium 3.6 mmol/L (3.6-5.2)
[2024-11-26] MEDS: ONDANSETRON HCL/PF 4 MG/2 ML VIAL INJ STA (13:21)
[2024-11-26 14:36] LABS: Specific Gravity Urine 1.015 (1.001-1.035); Urine Appearance HAZY (CLEAR); Urine Blood NEGATIVE (NEG - TRACE); Urine Color YELLOW (STRAW/YELL.)
[2024-11-26 14:37] LABS: PH BODY FLUID EXCP BLOOD 6.5 (5 - 9); Urine Urobilinogen Normal (NORMAL)
[2024-11-26] MEDS ORDERED: METOCLOPRAMIDE HCL 5 MG/ML VIAL ONE (14:54)
[2024-11-26] MEDS ORDERED: 0.9 % SODIUM CHLORIDE 50 ML IV ONE (14:54)
[2024-11-26] MEDS: diphenhydrAMINE HCL 50 MG/ML VIAL INJ ONE (15:02)
[2024-11-26] MEDS: METOCLOPRAMIDE HCL 10 MG in 0.9 % SODIUM CHLORIDE 50 ML IVP ONE (15:03)
[2024-11-26] MEDS: 0.9 % SODIUM CHLORIDE 1000 ML 1,000 ML IV STA (15:04)
[2024-11-26] MEDS: MORPHINE SULFATE 4 MG/ML CARTRIDGE IVP ONE (15:04)
[2024-11-26] MEDS ORDERED: ACETAMINOPHEN 500 MG TABLET PO PRN (18:19)
[2024-11-26] MEDS ORDERED: MAGNESIUM, ALUMINUM HYDROXIDE 30 ML ORAL.SUSP PO PRN (18:19)
[2024-11-26] MEDS: MORPHINE SULFATE 2 MG/ML CARTRIDGE IV PRN (19:42)
[2024-11-26] MEDS: 0.9 % SODIUM CHLORIDE 1000 ML 1,000 ML IV SCH (23:27)
[2024-11-27 03:09] LABS: Basophils #(Absolute) Auto 0.1 (0.0-0.1); Basophils%(Percent) Auto 0.6 (0.1-0.85); Eosinophils#(Absolute)Auto 0.1 (0.0-0.2); Eosinophils%(Percent) Auto 0.5 % (0.4-2.8); Granulocytes % - Auto 62.4 % (47.8-71.3); Granulocytes#(Absolute)- Auto 6.6 (2.3-6.0); Hematocrit 38.2 % (35.9-46.7); Mean Corpuscular Volume 90.1 fl (81.0-93.7); Monocytes #(Absolute)- Auto 0.8 (1.1-3.1); Monocytes %(Percent)- Auto 7.5 % (3.6-9.8); Platelet Count 244 K/uL (152-353); White Blood Count 10.6 K/uL (4.3-9.3)
[2024-11-27 03:17] LABS: Potassium 3.5 mmol/L (3.6-5.2)
[2024-11-27 09:17] LABS: Amphetamine Screen Urine NEG. (NEGATIVE); Cannabinoid Screen Urine NEG. (NEGATIVE); Cocaine Screen Urine NEG. (NEGATIVE); Methadone Screen Urine NEG. (NEGATIVE); Opiate Screen Urine NEG. (NEGATIVE)
[2024-11-27] MEDS: DOCUSATE SODIUM 100 MG CAPSULE PO SCH (09:31)
[2024-11-27] MEDS: FAMOTIDINE 20 MG TABLET PO SCH (09:32)
[2024-11-27] MEDS: POTASSIUM CHLORIDE 20 MEQ TAB.ER.PRT PO ONE (09:32)
[2024-11-27] MEDS: PANTOPRAZOLE SODIUM 40 MG TABLET.DR PO SCH ×2 (09:32→10:50)
[2024-11-27] MEDS: ONDANSETRON HCL/PF 4 MG/2 ML VIAL INJ PRN (09:58)
--- NOTE | 2024-11-27 11:21 | History & Physical Report ---
H&P: HPI History of Present Illness Chief complaint: INTRACTABLE N/V, INTRACTABLE ABD PAIN,CHEST PAIN Narrative: This is a 44 year old female patient that presents to the ER with c/o chest pressure, abdominal pain and N/V. Patient was discharged from the hospital for the same on 11/24/24 and was seen in the ER yesterday for the same issues. Patient states she is not feeling any better. patient denies any SOB, back pain, fever, chills or diarrhea. Patient reports no bowel movement since last hospital stay. Review of Systems Status of ROS 10 or more systems reviewed and unremark able except as noted in history and below Constitutional Reports: fatigue and change in sleep pattern; Denies: fever, chills, change in weight or malaise Eyes Denies: change in vision, blurry vision, blind spots, light sensitivity or eye discomfort Ears, nose, mouth, and throat Reports: hoarseness; Denies: throat pain, neck pain, throat swelling, difficulty swallowing, mouth pain, swelling of lips/tongue, dry mouth, change in hearing, vertigo, nasal discharge or post nasal drip Cardiovascular Reports: chest pain; Denies: palpitations, edema, swelling of feet/ankles, lightheadedness, shortness of breath with exertion or shortness of breath when lying down Respiratory Denies: shortness of breath, cough, wheezing, stridor, pain on inspiration, change in phlegm color or coughing up blood Gastrointestinal Reports: abdominal pain, nausea, vomiting and constipation; Denies: coffee grounds in vomit, heartburn, diarrhea, bloating or difficulty swallowing Genitourinary Denies: painful urination, urinary frequency, urinary urgency, urinary incontinence or blood in urine Musculoskeletal Denies: back pain, neck pain, extremity pain, extremity swelling, joint pain or limited range of motion Integumentary/Breast Denies: rash, itching, redness, skin pain, skin tenderness or skin swelling Neurological Denies: headache, numbness in extremities, weakness in extremities, lack of coordination or dizziness Psychiatric Denies: anxiety, mood swings, panic attacks, change in sleep pattern or hopelessness Endocrine Denies: excessive urination, excessive thirst, fatigue, cold intolerance or excessive sweating Hematologic/Lymphatic Denies: easy bruising, easy bleeding or enlarged lymph nodes Allergic/Immunologic Denies: hives, throat swelling, tongue swelling, facial swelling or wheezing PFSH PFSH Medical History Schizophrenia Hypertension Surgical History Hx of section Social History Smoking status: never smoker Within the past year, how often did you have a drink containing alcohol: never Within the past year, how often did you have six or more drinks on one occasion: never Score interpretation: A score less than 3 is consistent with normal alcohol consumption. Non-prescribed substance use: denies use Problems where you live: no known problems Highest level of school completed/degree received: high school Gender Identity: female Meds Home Medications and Allergies Home Medications Medication Instructions Recorded Confirmed Type docusate sodium 100 mg capsule 100 mg PO DAILY #30 caps 11/24/24 11/26/24 Rx (Colace) Allergies Allergy/AdvReac Type Severity Reaction Status Date / Time No Known Drug Allergies Allergy Verified 11/26/24 12:59 Exam Exam: Patient in alicea's position with family at bedside in [facility]. Constitutional: abnormal general appearance (disheveled), no apparent distress, abnormal body habitus (overweight), no limitations and alert Vital Signs - 24 hr 11/26/24 12:45 11/26/24 14:00 11/26/24 16:53 Temperature 97.8 F Pulse Rate 86 83 68 Pulse Rate [Right] Respiratory Rate 16 19 17 Blood Pressure 175/101 182/106 108/57 Blood Pressure [Ri ght Arm] Pulse Oximetry 99 97 98 Oxygen Delivery Me thod Room Air Room Air Room Air 11/26/24 17:57 11/26/24 18:19 11/26/24 18:30 Temperature 97.8 F 97.9 F 97.9 F Pulse Rate 68 Pulse Rate [Right] 83 83 Respiratory Rate 17 19 19 Blood Pressure 108/57 Blood Pressure [Ri ght Arm] 178/95 178/95 Pulse Oximetry 98 97 97 Oxygen Delivery Me thod Room Air Room Air 11/26/24 21:08 11/27/24 00:11 11/27/24 00:13 Temperature 97.9 F 98.3 F 98.3 F Pulse Rate Pulse Rate [Right] 83 97 H 97 H Respiratory Rate 18 16 16 Blood Pressure Blood Pressure [Ri ght Arm] 183/96 135/81 135/81 Pulse Oximetry 98 97 97 Oxygen Delivery Me thod Room Air Room Air Room Air 11/27/24 04:00 11/27/24 08:37 Temperature 97.6 F 97.9 F Pulse Rate Pulse Rate [Right] 93 H 67 Respiratory Rate 19 16 Blood Pressure Blood Pressure [Ri ght Arm] 111/57 127/72 Pulse Oximetry 97 99 Oxygen Delivery Me thod Room Air Room Air HENMT: normocephalic, head/scalp atraumatic, hearing grossly normal bilaterally, external ears normal, EACs normal, TMs abnormal, nasal mucous membranes normal, external nose normal, oral mucous membranes abnormal, oropharynx normal, dentition abnormal (caries) and (dental fracture) and gingiva abnormal Eyes: PERRL, EOMs intact bilaterally, conjunctivae normal, no scleral icterus, papilledema noted, alignment normal and periorbital findings normal Neck/C-Spine: trachea midline, cervical spine nontender, abnormal cervical ROM noted, supple, no meningeal signs, thyroid normal and no carotid bruits Lymph: no lymphadenopathy noted and no lymphedema noted Chest: inspection of chest normal and palpation of chest normal Respiratory: breath sounds unequal (diminished bases), normal respiratory effort, clear to auscultation bilaterally, no wheezes, no rales, no retractions, no use of accessory muscles and chest percussion normal Cardiovascular: normal heart rate noted, regular rhythm noted, no gallop, no rub, no murmur, no JVD, no clicks, peripheral pulses 2+ throughout, no bruits noted and no additional abnormal heart sounds Gastrointestinal: abdomen soft to palpation, tender to palpation (diffuse tenderness), nontender to percussion, nondistended, abnormal bowel sounds noted (hypoactive bowel sounds), hepatosplenomegaly noted, no masses, no pulsatile mass, no ascites and no hernia Genitourinary: no CVA tenderness, bladder normal to palpation and external appearance normal Back/Pelvis: spine abnormal to inspection, no thoracic spine tenderness, no lumbar spine tenderness, thoracic spine ROM normal, lumbar spine ROM abnormal, paraspinal muscle tenderness noted and straight leg raise negative bilaterally Extremities: normal to inspection, normal to palpation, no tenderness, full ROM, no joint enlargement and no deformity Neurology: technician automated equipment II-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 intact, no movement abnormality noted, no focal motor deficit noted, sensory deficit noted, deep tendon reflexes 2+ bilaterally, gait normal, speech normal, coordination normal, no pronator drift noted, no fasciculations noted and GCS normal Psychiatry: Mental Status Exam documented within this Exam's Psych section mental status grossly normal, oriented x3, thought process abnormality noted, cooperative, affect normal, psychomotor activity normal and memory normal Feel stressed/tense/nervous/anxious/difficulty sleeping: decline to answer Skin: skin color abnormal Reports (pale), no rash, no lesions, no ecchymosis noted, no lacerations, skin turgor abnormal Reports (tenting), no jaundice, no petechiae, no mottling and nails abnormality noted Assessment and Plan Assessment and Plan (1) Acute gastritis: Qualifiers: Gastritis type: other gastritis Gastritis bleeding: without bleeding Qualified Code(s): K29.00 - Acute gastritis without bleeding Code(s): K29.00 - Acute gastritis without bleeding (2) Constipation: Qualifiers: Constipation type: unspecified constipation type Qualified Code(s): K59.00 - Constipation, unspecified Code(s): K59.00 - Constipation, unspecified (3) Nausea and vomiting: Qualifiers: Vomiting type: bilious vomiting Qualified Code(s): R11.14 - Bilious vomiting Code(s): R11.2 - Nausea with vomiting, unspecified (4) Leukocytosis: Qualifiers: Leukocytosis type: unspecified Qualified Code(s): D72.829 - Elevated white blood cell count, unspecified Code(s): D72.829 - Elevated white blood cell count, unspecified (5) Hypokalemia: Code(s): E87.6 - Hypokalemia (6) GERD with esophagitis: Qualifiers: Esophagitis bleeding: without hemorrhage Qualified Code(s): K21.00 - Gastro-esophageal reflux disease with esophagitis, without bleeding Code(s): K21.00 - Gastro-esophageal reflux disease with esophagitis, without bleeding (7) Abdominal pain: Qualifiers: Abdominal location: upper abdomen, unspecified Qualified Code(s): R10.10 - Upper abdominal pain, unspecified Code(s): R10.9 - Unspecified abdominal pain Plan Sodium Chloride 1,000 mls @ 100 mls/hr IV CONT Docusate Sodium 100 mg PO DAILY Pantoprazole Sodium 40 mg PO BID Famotidine 40 mg PO Q12H Sucralfate 1 gm PO TIDCC Ciprofloxacin 500 mg PO Q12H Metronidazole 500 mg PO Q8H miralax 4 po x 1 then 1 packet bid Acetaminophen 500 PO Q6H PRN Ondansetron Hcl 4 mg INJ Q6H PRN Magnesium Hydroxide 30 ml PO DAILY PRN Morphine Sulfate 2 mg IV Q4H PRN Results Labs Labs: CBC 11/26/24 11/27/24 Range/Units 13:00 03:10 WBC 9.6 H 10.6 H (4.3-9.3) K/uL RBC 4.4 4.2 (4.00-5.50) M/uL Hgb 13.4 12.8 (12.5-15.8) gm/dL Hct 40.1 38.2 (35.9-46.7) % Plt Count 246 244 (152-353) K/uL Gran % 77.5 H 62.4 (47.8-71.3) % Lymph % (Auto) 16.3 L 29.0 (20.0-43.0) % [place] % (Auto) 5.0 7.5 (3.6-9.8) % Eos % (Auto) 0.6 0.5 (0.4-2.8) % Baso % (Auto) 0.6 0.6 (0.1-0.85) Lymph # (Auto) 1.6 3.1 (1.1-3.1) [place] # (Auto) 0.5 L 0.8 L (1.1-3.1) Eos # (Auto) 0.1 0.1 (0.0-0.2) Baso # (Auto) 0.1 0.1 (0.0-0.1) Absolute Gran (auto) 7.4 H 6.6 H (2.3-6.0) CMP 11/26/24 11/27/24 13:00 03:10 Sodium 135 L 136 Potassium 3.6 3.5 L Chloride 99.0 101.0 Carbon Dioxide 26 26 BUN 6 L 3 L Creatinine 0.7 0.7 Glucose 126 H 103 Calcium 8.9 9.0 Liver Function 11/26/24 Range/Units 13:00 Total Bilirubin 0.27 (0.0-1.0) mg/dL AST 18 (15-37) U/L ALT 26 L (30-65) U/L Alkaline Phosphatase 63 (50-136) U/L Albumin 3.6 (3.4-5.0) g/dL Urine 11/26/24 13:25 Urine Color Yellow Urine Appearance Hazy Ur Specific [place] 1.015 Urine Protein Negative Urine Glucose (UA) Normal Imaging Imaging ordered: Chest x-ray, CT scan - abdomen and other (Gall Bladder US) Radiologist's impression: XR CHEST 1V Date of Service: 11/25/24 HISTORY: dyspneadyspnea; COMPARISON: 04/15/2023 FINDINGS: The trachea is midline. The cardiac silhouette is unremarkable . The lungs are clear without focal infiltrate or effusion. The bony thorax is unremarkable. IMPRESSION: Normal chest. CT ABDOMEN AND PELVIS WITH CONTRAST Date of Service: 11/26/24 HISTORY: ABDOMINAL PAIN, VOMITING; CV COMPARISON: November 23, 2024. TECHNIQUE: Axial CT images were obtained through the abdomen and pelvis after the intravenous administration of contrast. Coronal reformatted images were included. Informed written consent was obtained prior to contrast administration. All CT scans at this facility use dose modulation, iterative reconstruction, and/or weight based dosing when appropriate to reduce radiation dose to as low as reasonably achievable. FINDINGS: LOWER THORAX: Within normal limits. ABDOMEN: LIVER: Within normal limits. GALLBLADDER: Within normal limits. SPLEEN: Within normal limits. PANCREAS: Within normal limits. KIDNEYS: Within normal limits. ADRENAL GLANDS: Within normal limits. GI TRACT: Large volume of colonic stool. No evidence of bowel obstruction. Gastric wall thickening is nonspecific but raises suspicion for possible gastritis. Normal appendix. LYMPH NODES: No abnormally enlarged nodes. VESSELS: Mild atherosclerosis. PERITONEUM / RETROPERITONEUM: No free gas. PELVIS: BLADDER: Within normal limits. GENITALS: Within normal limits. BONES: Degenerative changes noted within the lumbar spine and pelvis. No suspicious lytic or blastic lesions. IMPRESSION: Gastric wall thickening is nonspecific but raises suspicion for gastritis. Correlation is recommended. US GALLBLADDER Date of Service: 11/26/24 HISTORY: EPIGASTRIC PAIN ; PRIOR GB U/S ON 11/23/24 COMPARISON: CT abdomen and pelvis 11/23/2024, gallbladder U/S 11/23/2024 TECHNIQUE: 94 images made by the fur remodeler. Muñoz scale and color-flow images of the right upper quadrant were obtained. FINDINGS: The liver has normal echogenicity and size. No mass or intrahepatic biliary duct dilatation is present. The intrahepatic inferior vena cava was imaged. The visualized hepatic veins are patent with blood flow toward the right atrium. The portal vein is patent with blood flow toward the liver. The hepatic artery was patent. Limited visualization of the pancreas shows no significant abnormality. The gallbladder is normally distended with no stones, wall thickening, or pericholecystic fluid. No extrahepatic biliary duct dilatation; common duct is normal. The right kidney is normal in size and echogenicity. No hydronephrosis. IMPRESSION: 1. No significant abnormality
[2024-11-27] MEDS: polyethylene glycoL 3350 17 GM POWD.PACK PO ONE (13:16)
[2024-11-27] MEDS: SUCRALFATE 1 GM TABLET PO SCH (13:17)
[2024-11-27] MEDS: metroNIDAZOLE 250 MG TABLET PO SCH (13:17)
[2024-11-27] MEDS: CIPROFLOXACIN HCL 500 MG TABLET PO SCH (13:17)
--- NOTE | 2024-11-27 17:17 | Progress Note ---
Progress Note: Subjective Subjective Interval history: Patient remains with pain still requiring morphine for the pain no nausea No vomiting noted overnight no diarrhea patient says she has not had a bowel movement since her last hospitalization on 11/24/24 noted she had the urge to have a bowel movement. Exam Exam: Patient setting up in bed with family at bedside in [place]. talking and cutting up with them. Constitutional: abnormal general appearance (disheveled), no apparent distress, abnormal body habitus (overweight), no limitations and alert Vital Signs - 24 hr 11/26/24 17:57 11/26/24 18:19 11/26/24 18:30 Temperature 97.8 F 97.9 F 97.9 F Pulse Rate 68 Pulse Rate [Right] 83 83 Respiratory Rate 17 19 19 Blood Pressure 108/57 Blood Pressure [Ri ght Arm] 178/95 178/95 Pulse Oximetry 98 97 [facility] 11/26/24 21:08 11/27/24 00:11 11/27/24 00:13 Temperature 97.9 F 98.3 F 98.3 F Pulse Rate Pulse Rate [Right] 83 97 H 97 H Respiratory Rate 18 16 16 Blood Pressure Blood Pressure [Ri ght Arm] 183/96 135/81 135/81 Pulse Oximetry 98 97 97 [facility] Room Air 11/27/24 04:00 11/27/24 08:37 11/27/24 12:00 Temperature 97.6 F 97.9 F 97.9 F Pulse Rate Pulse Rate [Right] 93 H 67 73 Respiratory Rate 19 16 16 Blood Pressure Blood Pressure [Ri ght Arm] 111/57 127/72 121/78 Pulse Oximetry 97 99 99 [facility] Room Air 11/27/24 16:42 Temperature 98.3 F Pulse Rate Pulse Rate [Right] 92 H Respiratory Rate 17 Blood Pressure Blood Pressure [Ri ght Arm] 128/82 Pulse Oximetry 99 [facility] HENMT: normocephalic, head/scalp atraumatic, hearing grossly normal bilaterally, external ears normal, EACs normal, TMs abnormal, nasal mucous membranes normal, external nose normal, oral mucous membranes abnormal, oropharynx normal, dentition abnormal (caries) and (dental fracture) and gingiva abnormal Eyes: PERRL, EOMs intact bilaterally, conjunctivae normal, no scleral icterus, papilledema noted, alignment normal and periorbital findings normal Neck/C-Spine: trachea midline, cervical spine nontender, abnormal cervical ROM noted, supple, no meningeal signs, thyroid normal and no carotid bruits Lymph: no lymphadenopathy noted and no lymphedema noted Chest: inspection of chest normal and palpation of chest normal Respiratory: breath sounds unequal (diminished bases), normal respiratory effort, clear to auscultation bilaterally, no wheezes, no rales, no retractions, no use of accessory muscles and chest percussion normal Cardiovascular: normal heart rate noted, regular rhythm noted, no gallop, no rub, no murmur, no JVD, no clicks, peripheral pulses 2+ throughout, no bruits noted and no additional abnormal heart sounds Gastrointestinal: abdomen normal to inspection, abdomen soft to palpation, tender to palpation (diffuse tenderness), nontender to percussion, nondistended, abnormal bowel sounds noted (hypoactive bowel sounds), hepatosplenomegaly noted, no masses, no pulsatile mass, no ascites and no hernia Genitourinary: no CVA tenderness, bladder normal to palpation and external appearance normal Back/Pelvis: spine abnormal to inspection, no thoracic spine tenderness, no lumbar spine tenderness, thoracic spine ROM normal, lumbar spine ROM abnormal, paraspinal muscle tenderness noted and straight leg raise negative bilaterally Extremities: normal to inspection, normal to palpation, no tenderness, full ROM, no joint enlargement and no deformity 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: 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, no movement abnormality noted, no focal motor deficit noted, sensory deficit noted, deep tendon reflexes 2+ bilaterally, gait normal, speech normal, coordination normal, no pronator drift noted, no fasci culations noted and GCS normal Psychiatry: Mental Status Exam documented within this Exam's Psych section mental status grossly normal, oriented x3, thought process abnormality noted, cooperative, affect normal, psychomotor activity normal and memory normal Feel stressed/tense/nervous/anxious/difficulty sleeping: decline to answer Skin: skin color abnormal Reports (pale), no rash, no lesions, no ecchymosis noted, no wounds, no lacerations, skin turgor abnormal Reports (tenting), no jaundice, no petechiae, no mottling, nails abnormality noted and no alopecia Progress Note: Objective Labs Labs: CBC 11/27/24 Range/Units 03:10 WBC 10.6 H (4.3-9.3) K/uL RBC 4.2 (4.00-5.50) M/uL Hgb 12.8 (12.5-15.8) gm/dL Hct 38.2 (35.9-46.7) % Plt Count 244 (152-353) K/uL Gran % 62.4 (47.8-71.3) % Lymph % (Auto) 29.0 (20.0-43.0) % [place] % (Auto) 7.5 (3.6-9.8) % Eos % (Auto) 0.5 (0.4-2.8) % Baso % (Auto) 0.6 (0.1-0.85) Lymph # (Auto) 3.1 (1.1-3.1) [place] # (Auto) 0.8 L (1.1-3.1) Eos # (Auto) 0.1 (0.0-0.2) Baso # (Auto) 0.1 (0.0-0.1) Absolute Gran (auto) 6.6 H (2.3-6.0) CMP 11/27/24 03:10 Sodium 136 Potassium 3.5 L Chloride 101.0 Carbon Dioxide 26 BUN 3 L Creatinine 0.7 Glucose 103 Calcium 9.0 Urine 11/26/24 13:25 Urine Color Yellow Urine Appearance Hazy Ur Specific [place] 1.015 Urine Protein Negative Urine Glucose (UA) Normal Progress Note: A&P Assessment and Plan (1) Acute gastritis: Qualifiers: Gastritis type: other gastritis Gastritis bleeding: without bleeding Qualified Code(s): K29.00 - Acute gastritis without bleeding (2) Constipation: Qualifiers: Constipation type: unspecified constipation type Qualified Code(s): K59.00 - Constipation, unspecified (3) Nausea and vomiting: Qualifiers: Vomiting type: bilious vomiting Qualified Code(s): R11.14 - Bilious vomiting (4) Leukocytosis: Qualifiers: Leukocytosis type: unspecified Qualified Code(s): D72.829 - Elevated white blood cell count, unspecified (5) Hypokalemia: (6) GERD with esophagitis: Qualifiers: Esophagitis bleeding: without hemorrhage Qualified Code(s): K21.00 - Gastro-esophageal reflux disease with esophagitis, without bleeding (7) Abdominal pain: Qualifiers: Abdominal location: upper abdomen, unspecified Qualified Code(s): R10.10 - Upper abdominal pain, unspecified Plan Sodium Chloride 1,000 mls @ 100 mls/hr IV CONT Docusate Sodium 100 mg PO DAILY Pantoprazole Sodium 40 mg PO BID Famotidine 40 mg PO Q12H Sucralfate 1 gm PO TIDCC Ciprofloxacin 500 mg PO Q12H Metronidazole 500 mg PO Q8H miralax 4 po x 1 then 1 packet bid Acetaminophen 500 PO Q6H PRN Ondansetron Hcl 4 mg INJ Q6H PRN Magnesium Hydroxide 30 ml PO DAILY PRN Morphine Sulfate 2 mg IV Q4H PRN Fall Risk Details Faustin Fall Scale Risk Level: Moderate Fall Risk Current Medications: Current Medications Acetaminophen (Acetaminophen 500 Mg Tablet) 500 mg PO Q6H PRN PRN Reason: MILD PAIN SCALE 1-4 Ciprofloxacin (Ciprofloxacin Hcl 500 Mg Tablet) 500 mg PO Q12H [facility] Last Admin: 11/27/24 13:17 Dose: 500 mg Docusate Sodium (Docusate Sodium 100 Mg Capsule) 100 mg PO DAILY [facility] Last Admin: 11/27/24 09:31 Dose: 100 mg Famotidine (Famotidine 20 Mg Tablet) 40 mg PO Q12H [facility] Last Admin: 11/27/24 09:32 Dose: 40 mg Sodium Chloride (Sodium Chloride) 1,000 mls @ 100 mls/hr IV CONT [facility] Last Infusion: 11/27/24 09:27 Dose: Infused Magnesium Hydroxide (Magnesium, Aluminum Hydroxide 30 Ml Oral.Susp) 30 ml PO DAILY PRN PRN Reason: gerd Metronidazole (Metronidazole 250 Mg Tablet) 500 mg PO Q8H [facility] Last Admin: 11/27/24 13:17 Dose: 500 mg Morphine Sulfate (Morphine Sulfate 2 Mg/Ml Cartridge) 2 mg IV Q4H PRN PRN Reason: Moderate Pain SCALE 5-7 Last Admin: 11/27/24 09:58 Dose: 2 mg Ondansetron HCl (Ondansetron Hcl/Pf 4 Mg/2 Ml Vial) 4 mg INJ Q6H PRN PRN Reason: Nausea And Vomiting Last Admin: 11/27/24 09:58 Dose: 4 mg Pantoprazole Sodium (Pantoprazole Sodium 40 Mg Tablet.Dr) 40 mg PO BID [facility] Last Admin: 11/27/24 09:32 Dose: 40 mg Polyethylene Glycol (Polyethylene Glycol 3350 17 Gm Powd.Pack) 17 gm PO Q12H [facility] Sucralfate (Sucralfate 1 Gm Tablet) 1 gm PO TIDCC [facility] Last Admin: 11/27/24 13:17 Dose: 1 gm Time Spent With Patient Time: Total time spent is greater than 50% in coordination of care (as documented) at patient's floor/unit and/or counseling patient: Time with patient: greater than 35 minutes
[2024-11-28] MEDS: CIPROFLOXACIN HCL 500 MG TABLET PO SCH (00:05)
[2024-11-28 06:03] LABS: Basophils%(Percent) Auto 0.7 (0.1-0.85); Eosinophils#(Absolute)Auto 0.1 (0.0-0.2); Eosinophils%(Percent) Auto 2.2 % (0.4-2.8); Granulocytes % - Auto 47.6 % (47.8-71.3); Granulocytes#(Absolute)- Auto 3.2 (2.3-6.0); Hematocrit 34.3 % (35.9-46.7); Mean Corpuscular Volume 91.1 fl (81.0-93.7); Monocytes #(Absolute)- Auto 0.6 (1.1-3.1); Monocytes %(Percent)- Auto 8.8 % (3.6-9.8); Platelet Count 223 K/uL (152-353); White Blood Count 6.7 K/uL (4.3-9.3)
[2024-11-28 06:35] LABS: Potassium 4.2 mmol/L (3.6-5.2)
[2024-11-28] MEDS: polyethylene glycoL 3350 17 GM POWD.PACK PO SCH (09:01)
[2024-11-28 11:49] VITALS: BP 141/97; PULSE 79; RESP 16; TEMP 97.9
--- NOTE | 2024-11-28 12:19 | Discharge Summary ---
DS: Providers Provider Date of admission: 11/26/24 17:16 Primary care physician: Karen Moura DO Admitting clinician: Fanny Gutierrez Attending physician on admission: Karen Moura Attending physician on discharge: Karen Moura Discharging clinician: Karen Moura Anticipated date of discharge: 11/28/24 DS: Diagnosis Discharge Diagnosis (1) Acute gastritis: Qualifiers: Gastritis bleeding: without bleeding Gastritis type: other gastritis Qualified Code(s): K29.00 - Acute gastritis without bleeding (2) Constipation: Qualifiers: Constipation type: unspecified constipation type Qualified Code(s): K59.00 - Constipation, unspecified (3) Nausea and vomiting: Qualifiers: Vomiting type: bilious vomiting Qualified Code(s): R11.14 - Bilious vomiting (4) Leukocytosis: Qualifiers: Leukocytosis type: unspecified Qualified Code(s): D72.829 - Elevated white blood cell count, unspecified (5) Hypokalemia: (6) GERD with esophagitis: Qualifiers: Esophagitis bleeding: without hemorrhage Qualified Code(s): K21.00 - Gastro-esophageal reflux disease with esophagitis, without bleeding (7) Abdominal pain: Qualifiers: Abdominal location: upper abdomen, unspecified Qualified Code(s): R10.10 - Upper abdominal pain, unspecified DS: Summary Hospital Course Hospital Course: This is a 44 year old female patient that presents to the ER with c/o chest pressure, abdominal pain and N/V. Patient was discharged from the hospital for the same on 11/24/24 and was seen in the ER yesterday for the same issues. Patie nt states she is not feeling any better. patient denies any SOB, back pain, fever, chills or diarrhea. Patient reports no bowel movement since last hospital stay. Patient given MiraLAX 4 packets and had 4 good bowel movements patient states she felt better although she was to have abdominal pain difficulty secondary to the pain and the second admission remained afebrile on the second admission added simethicone on continue at home Carafate Pepcid twice a day as well as Protonix twice a day and on the third admission patient states that her pain was gone until she recently was only on 1 intolerable. Patient had no more nausea and vomiting even with the eating was able to tolerate it stools remained stable with the MiraLAX that started twice a day after the packet for was completed. Sodium improved from 135 on admission to 138 on discharge glucose was 126 on admission was on down to 92 on discharge BUN went from 6 and 1425 on admission to 8 on 11/28/2024 on discharge. Albumin went from 3.6 on admission on 11/27/2019 25-2.7 on 11/28/2024. Patient remained stable and states she understands that she needs to follow-up with a GI medicine doctor and have an EGD to just ensure that there is no deep ulcers or other medications needed and to see prognosis for future events and reoccurrence and to ensure that she is following a bland diet without skipping meals and medications are helping heal her chronic gastritis. Status at Discharge Functional status at discharge: independent ambulation Overall status at discharge: patient is progressing back to baseline Time Spent with Patient Time attestation: Total time spent providing and/or coordinating discharge services: Time spent: greater than 30 minutes Exam Exam: Patient setting up in bed with family at bedside in NAD. talking and cutting up with them. Constitutional: normal general appearance, no apparent distress, abnormal body habitus (overweight), no limitations and alert Vital Signs - 24 hr 11/27/24 16:42 11/27/24 20:00 11/28/24 07:56 Temperature 98.3 F 98.5 F 98.1 F Pulse Rate [Right] 92 H 77 90 Respiratory Rate 17 23 20 Blood Pressure [Ri t Arm] 128/82 120/86 136/92 Pulse Oximetry 99 98 98 Oxygen Delivery Me thod Room Air Room Air Room Air 11/28/24 11:49 Temperature 97.9 F Pulse Rate [Right] 79 Respiratory Rate 16 Blood Pressure [Ri t Arm] 141/97 Pulse Oximetry 99 Oxygen Delivery Me thod Room Air HENMT: normocephalic, head/scalp atraumatic, hearing grossly normal bilaterally, external ears normal, EACs normal, nasal mucous membranes normal, external nose normal, oral mucous membranes normal, oropharynx normal, dentition abnormal (caries) and (dental fracture) and gingiva abnormal Eyes: PERRL, EOMs intact bilaterally, conjunctivae normal, no scleral icterus, papilledema noted, alignment normal and periorbital findings normal Neck/C-Spine: trachea midline, cervical spine nontender, abnormal cervical ROM noted, supple, no meningeal signs, thyroid normal and no carotid bruits Lymph: no lymphadenopathy noted and no lymphedema noted Chest: inspection of chest normal and palpation of chest normal Respiratory: breath sounds equal bilaterally, normal respiratory effort, clear to auscultation bilaterally, no wheezes, no rales, no retractions, no use of accessory muscles and chest percussion normal Cardiovascular: normal heart rate noted, regular rhythm noted, no gallop, no rub, no murmur, no JVD, no clicks, peripheral pulses 2+ throughout, no bruits noted and no additional abnormal heart sounds Gastrointestinal: abdomen normal to inspection, abdomen soft to palpation, tender to palpation (diffuse tenderness), nontender to percussion, nondistended, normoactive bowel sounds, hepatosplenomegaly noted, no masses, no pulsatile mass, no ascites and no hernia Genitourinary: no CVA tenderness, bladder normal to palpation and external appearance normal Back/Pelvis: spine abnormal to inspection, no thoracic spine tenderness, no lumbar spine tenderness, thoracic spine ROM normal, lumbar spine ROM normal, paraspinal muscle tenderness noted and straight leg raise negative bilaterally Extremities: normal to inspection, normal to palpation, no tenderness, full ROM, no joint enlargement and no deformity Neurology: learning center instructor II-XII intact, no movement abnormality noted, no focal motor deficit noted, sensory deficit noted, deep tendon reflexes 2+ bilaterally, gait normal, speech normal, coordination normal, no pronator drift noted, no fasciculations noted and GCS normal Psychiatry: Mental Status Exam documented within this Exam's Psych section mental status grossly normal, oriented x3, thought process abnormality noted, cooperative, affect normal, psychomotor activity normal and memory normal Feel stressed/tense/nervous/anxious/difficulty sleeping: not at all Skin: skin color normal, no rash, no lesions, no ecchymosis noted, no wounds, no lacerations, skin turgor normal, no jaundice, no petechiae, no mottling, nails abnormality noted and no alopecia DS: Data Data Completed and Pending Labs on day of discharge: Labs from last 24 hours 11/28/24 05:30 WBC 6.7 RBC 3.8 L Hgb 11.6 L Hct 34.3 L MCV 91.1 MCH 30.8 MCHC 33.8 RDW 15.9 H Plt Count 223 MPV 9.2 Gran % 47.6 L Lymph % (Auto) 40.7 Isabella % (Auto) 8.8 Eos % (Auto) 2.2 Baso % (Auto) 0.7 Lymph # (Auto) 2.7 Isabella # (Auto) 0.6 L Eos # (Auto) 0.1 Baso # (Auto) 0.0 Absolute Gran (auto) 3.2 Sodium 138 Potassium 4.2 Chloride 107.0 Carbon Dioxide 29 Anion Gap 2.0 L BUN 8 Creatinine 0.7 Estimated GFR 109.3 Glucose 92 Calcium 8.3 L Phosphorus 3.5 Magnesium 2.0 Total Bilirubin 0.13 AST 7 L ALT 14 L Alkaline Phosphatase 47 L Total Protein 5.7 L Albumin 2.7 L TSH 1.[address] scan - abdomen: Attestation: I have reviewed the pertinent imaging results. Radiologist's impression: comparison November 23, 2024. TECHNIQUE: Axial CT images were obtained through the abdomen and pelvis after the intravenous administration of contrast. Coronal reformatted images were included. Informed written consent was obtained prior to contrast administration. All CT scans at this facility use dose modulation, iterative reconstruction, and/or weight based dosing when appropriate to reduce radiation dose to as low as reasonably achievable. FINDINGS: LOWER THORAX: Within normal limits. ABDOMEN: LIVER: Within normal limits. GALLBLADDER: Within normal limits. SPLEEN: Within normal limits. PANCREAS: Within normal limits. KIDNEYS: Within normal limits. ADRENAL GLANDS: Within normal limits. GI TRACT: Large volume of colonic stool. No evidence of bowel obstruction. Gastric wall thickening is nonspecific but raises suspicion for possible gastritis. Normal appendix. LYMPH NODES: No abnormally enlarged nodes. VESSELS: Mild atherosclerosis. PERITONEUM / RETROPERITONEUM: No free gas. PELVIS: BLADDER: Within normal limits. GENITALS: Within normal limits. BONES: Degenerative changes noted within the lumbar spine and pelvis. No suspicious lytic or blastic lesions. IMPRESSION: Gastric wall thickening is nonspecific but raises suspicion for gastritis. Correlation is recommended. Chest x-ray: Attestation: I have reviewed the pertinent imaging results. Radiologist's impression: EXAM: 11/25/2024 XR CHEST 1V HISTORY: dyspneadyspnea; COMPARISON: 04/15/2023 FINDINGS: The trachea is midline. The cardiac silhouette is unremarkable . The lungs are clear without focal infiltrate or effusion. The bony thorax is unremarkable. IMPRESSION: Normal chest US - abdomen: Attestation: I have reviewed the pertinent imaging results. Radiologist's impression: Ordering Physician: Santi Driver Date of Service: 11/23/24 Procedure(s): US gallbladder Accession Number(s): [id number] cc: ~ EXAM: US GALLBLADDER HISTORY: Abodminal PainAbodminal Pain; ABNML CT REPORT COMPARISON: CT same day TECHNIQUE: Multiple muñoz scale and color flow Doppler images of the right upper quadrant were obtained. FINDINGS: The liver is normal in size and normal in echotexture. No focal identifiable hepatic mass or intrahepatic biliary ductal dilatation. No stones or sludge in the gallbladder. No gallbladder wall thickening or pericholecystic fluid. The sonographic López's sign is reported as negative by the tyre fitter. The common bile duct is unremarkable measuring 0.5 cm. Limited visualized portions of the pancreas and IVC are unremarkable. The right kidney appears normal in size measuring up to 10.6 cm. No stones or hydronephrosis. IMPRESSION: Unremarkable right upper quadrant ultrasound. No evidence of cholelithiasis or acute cholecystitis Ordering Physician: Fanny Gutierrez Date of Service: 11/26/24 Procedure(s): US gallbladder Accession Number(s): [id number] cc: ~ EXAM: US GALLBLADDER HISTORY: EPIGASTRIC PAIN ; PRIOR GB U/S ON 11/23/24 COMPARISON: CT abdomen and pelvis 11/23/2024, gallbladder U/S 11/23/2024 TECHNIQUE: 94 images made by the tyre fitter. Muñoz scale and color-flow images of the right upper quadrant were obtained. FINDINGS: The liver has normal echogenicity and size. No mass or intrahepatic biliary duct dilatation is present. The intrahepatic inferior vena cava was imaged. The visualized hepatic veins are patent with blood flow toward the right atrium. The portal vein is patent with blood flow toward the liver. The hepatic artery was patent. Limited visualization of the pancreas shows no significant abnormality. The gallbladder is normally distended with no stones, wall thickening, or pericholecystic fluid. No extrahepatic biliary duct dilatation; common duct is normal. The right kidney is normal in size and echogenicity. No hydronephrosis. IMPRESSION: 1. No significant abnormality Discharge Plan Discharge Disposition: Home, Self-Care Condition: Improved Discharge Medications: New simethicone 180 mg capsule 180 mg PO Q8H Qty: 60 0RF Rx Instructions: after meals polyethylene glycol 3350 [Miralax] 17 gram/dose powder 17 g PO BID Qty: 850 0RF Rx Instructions: if diarrhea decrease to daily famotidine [Pepcid] 40 mg tablet 40 mg PO BID Qty: 60 0RF Continued albuterol sulfate 90 mcg/actuation HFA aerosol inhaler 2 puff inhalation Q4H PRN (Reason: shortness of breath or wheezing) sucralfate [Carafate] 1 gram tablet 1 g PO TIDCC promethazine 25 mg suppository 25 mg AK Q6H PRN (Reason: nausea and vomiting) ondansetron 4 mg tablet,disintegrating 4 mg PO Q6H PRN (Reason: nausea and vomiting) docusate sodium [Colace] 100 mg capsule 100 mg PO DAILY Qty: 30 0RF Changed pantoprazole 40 mg tablet,delayed release (DR/EC) 40 mg PO BID Qty: 60 0RF Discharge Orders: Discharge Order (Routine); Ordered 11/28/24 Ordered By: Karen Moura Activity: increase activity as tolerated Diet: advance to your usual diet Interventions: Discharge Assessment Last Done: 11/28/24 12:09 MED/SURG & ICU Observation Charge Sheet Last Done: 11/28/24 12:11 Patient Instructions: Gastritis (DC), Diet for Stomach Ulcers and Gastritis (ED), Acute Nausea and Vomiting (DC) Activity Restrictions/Additional Instructions: increase water daily intake and follow bland diet and avoid spices to help stomach heal follow up PCP in 2-3 days and follow up with GI medicine for EGD and HIDA scan as an outpatient Forms: Portal/Health Info Access Inst Follow-Ups: Karen Moura DO [Primary Care Provider] - Discharge Date/Time: 11/28/24 12:41
== END 2024-11-28 12:41 | disposition home or self-care (01) ==
LOC: ED 12:34 → MS 12:34
PROVIDERS: ADMIT Family Medicine; ATTEND Family Medicine
DX: K59.00 Constipation, unspecified; K21.00 Gastro-esophageal reflux disease with esophagitis, without bleeding; E87.6 Hypokalemia; I70.8 Atherosclerosis of other arteries; Z79.899 Other long term (current) drug therapy; K29.00 Acute gastritis without bleeding